=== PATIENT | female | born 1975 | race Caucasian/White ===

== ENCOUNTER 2020-12-16 16:23 | Outpatient (CLI) | payer BC | END 2020-12-16 16:24 | disposition home or self-care (01) | LOC: BICRAD 16:23 | PROVIDERS: ATTEND Neurological Surgery | DX: M54.16 Radiculopathy, lumbar region (principal); M41.9 Scoliosis, unspecified | CPT/HCPCS: 72110 ==

== ENCOUNTER 2021-01-14 14:30 | Outpatient (CLI) | payer BC, OTHER | END 2021-01-14 14:31 | disposition home or self-care (01) | LOC: TBSIIMAG 14:30 | PROVIDERS: ATTEND Neurological Surgery | DX: M51.16 Intervertebral disc disorders with radiculopathy, lumbar region (principal) | CPT/HCPCS: 72148 ==

== ENCOUNTER 2022-09-14 11:38 | Outpatient (CLI) | payer BC ==
[2022-09-14 13:27] LABS: BHCG - Serum Negative (NEGATIVE); Pregs Control Background? CLEAR/WHITE (CLR/WHITE); Pregs Control Bar Appear? YES (CONTROL BAR)
== END 2022-09-14 11:39 | disposition home or self-care (01) ==
LOC: LABBT 11:38
PROVIDERS: ATTEND Otolaryngology Plastic Surgery within the Head & Neck
DX: Z01.818 Encounter for other preprocedural examination (principal); J32.9 Chronic sinusitis, unspecified; J34.2 Deviated nasal septum; J34.3 Hypertrophy of nasal turbinates
CPT/HCPCS: 84703; 85014; 93005; 93010

== ENCOUNTER 2022-09-16 09:11 | Day surgery (SDC) | payer BC ==
[2022-09-15 13:04] VITALS: BMI 20.9
[2022-09-16] MEDS ORDERED: Oxymetazoline HCl 0.05% (30 ML BOT) ONE (09:32)
[2022-09-16] MEDS ORDERED: Lidocaine 1% (PF) 30 ML VIAL ONE (10:36)
[2022-09-16] MEDS ORDERED: fentaNYL PF 100 MCG/2 ML SYRINGE ONE (10:41)
[2022-09-16] MEDS ORDERED: Midazolam HCl 2 mg/2 ml Vial ONE (10:48)
[2022-09-16] MEDS ORDERED: Scopolamine 1.5 mg/72 hour Patch ONE (10:48)
[2022-09-16] MEDS ORDERED: ePHEDrine 50 MG/ML VIAL ONE (11:01)
[2022-09-16] MEDS ORDERED: Rocuronium Bromide 10 MG/ML (10ML VIAL) ONE (11:01)
[2022-09-16] MEDS ORDERED: NEOSTIGMINE 3 MG/3 ML SYR 3 MG/3 ML SYRINGE ONE (11:01)
[2022-09-16] MEDS ORDERED: Phenylephrine 10 MG/ML VIAL ONE (11:01)
[2022-09-16] MEDS ORDERED: PROPOFOL 200 MG/20 ML VIAL ONE (11:01)
[2022-09-16] MEDS ORDERED: Dexamethasone 20 MG/5 ML VIAL ONE (11:01)
[2022-09-16] MEDS ORDERED: GLYCOPYRROLATE/PF 0.2 MG/ML VIAL ONE (11:01)
[2022-09-16] MEDS ORDERED: Ondansetron PF 4 MG/2 ML Vial ONE ×2 (11:01→13:33)
[2022-09-16] MEDS ORDERED: FENTANYL 50 MCG/ML 1 ML VIAL ONE ×2 (12:05→12:32)
[2022-09-16] MEDS ORDERED: Morphine 4 MG/ML VIAL ONE (12:25)
[2022-09-16] MEDS ORDERED: HYDROmorphone 0.5 MG/0.5 ML SYRINGE ONE (12:38)
[2022-09-16] MEDS ORDERED: Acetaminophen 325 MG TAB ONE (12:43)
[2022-09-16] MEDS ORDERED: Acetaminophen 650 MG Suppository PR SCH (13:15)
== END 2022-09-16 14:26 | disposition home or self-care (01) ==
LOC: SDC 09:11
PROVIDERS: ATTEND Otolaryngology Plastic Surgery within the Head & Neck
DX: J32.9 Chronic sinusitis, unspecified (principal); J33.8 Other polyp of sinus; J30.89 Other allergic rhinitis; B48.8 Other specified mycoses; J34.2 Deviated nasal septum; J34.3 Hypertrophy of nasal turbinates; J34.89 Other specified disorders of nose and nasal sinuses; Z79.2 Long term (current) use of antibiotics; Z79.3 Long term (current) use of hormonal contraceptives; Z79.899 Other long term (current) drug therapy
CPT/HCPCS: J1170; J2001; J2250; J2270; J2405; J3010